=== PATIENT | male | born 1975 | race Caucasian/White ===

== ENCOUNTER 2018-10-04 12:24 | Day surgery (SDC) | payer OTHER, BC ==
[~2018-10-04 12:24] MED LIST: CEFAZOLIN 2 GM/50 ML (PMX) 50 ML IVPB; DEXAMETHASONE 4 MG/ML 5 ML INJ; KETOROLAC 30 MG INJ
[2018-10-04 13:19] LABS: ADD MAN DIFF? NO
[2018-10-04 13:26] LABS: BASOPHILS % 0.6 % (0.0-2.0); EOSINOPHILS # 0.2 10^3/ul (0.0-0.5); EOSINOPHILS % 2.5 % (0.0-7.0); HEMATOCRIT 42.6 % (42.0-52.0); HEMOGLOBIN 14.9 g/dl (14.0-18.0); LYMPHOCYTES # 3.3 10^3/ul (0.8-2.9); LYMPHOCYTES % 48.8 % (15.0-51.0); MEAN CORPUSCULAR HEMOGLOBIN 31.1 pg (29.0-33.0); MEAN CORPUSCULAR VOLUME 88.9 fl (82.0-101.0); MEAN PLATELET VOLUME 11.3 fl (7.4-10.4); MONOCYTE # 0.6 10^3/ul (0.3-0.9); MONOCYTES % 9.1 % (0.0-11.0); NEUTROPHIL # 2.6 10^3/ul (1.6-7.5); NEUTROPHILS % 38.7 % (39.0-77.0); PLATELET COUNT 258 10^3/UL (140-415); RED BLOOD COUNT 4.79 10^6/ul (4.70-6.10); RED CELL DISTRIBUTION WIDTH 13.2 % (11.5-14.5)
[2018-10-04 13:26] LABS: WHITE BLOOD COUNT 6.8 10^3/ul (4.8-10.8)
[2018-10-04 13:49] LABS: PROTIME 12.3 Sec (11.9-14.9)
[2018-10-04 13:50] LABS: PARTIAL THROMBOPLASTIN TIME 29.9 Sec (23.0-35.0)
[2018-10-04 13:54] LABS: ALANINE AMINOTRANSFERASE 48 IU/L (13-69); ALBUMIN 4.5 g/dl (3.3-4.9); ALKALINE PHOSPHATASE 82 IU/L (42-121); ANION GAP 9 (5-13); ASPARTATE AMINO TRANSFERASE 32 IU/L (15-46); BILIRUBIN,INDIRECT 0.6 mg/dl (0-1.1); BILIRUBIN,TOTAL 0.6 mg/dl (0.2-1.3); BLOOD UREA NITROGEN 18 mg/dl (7-20); CALCIUM 9.5 mg/dl (8.4-10.2); CARBON DIOXIDE 25 mmol/L (21-31); CHLORIDE 107 mmol/L (97-110); CREATININE 0.86 mg/dl (0.61-1.24); Estimated GFR > 60 mL/min (>60); GLUCOSE 106 mg/dl (70-220); POTASSIUM 3.8 mmol/L (3.5-5.1); SODIUM 141 mmol/L (135-144); TOTAL PROTEIN 7.5 g/dl (6.1-8.1)
[2018-10-04] MEDS: SOD CHLORIDE 0.9% 1,000 ML IV (13:54)
[2018-10-04] MEDS ORDERED: BUPIVACAINE 0.25%/EPI (SDV) 30 ML INJ (14:47)
[2018-10-04] MEDS ORDERED: CEFAZOLIN 1 GM INJ (14:53)
[2018-10-04] MEDS ORDERED: MIDAZOLAM 1 MG/ML 2 ML INJ (14:54)
[2018-10-04] MEDS ORDERED: FENTAnyl 50 MCG/ML VIAL (14:54)
[2018-10-04] MEDS ORDERED: LIDOCAINE 1%/EPI (1:100,000) (MDV) 20 ML (14:55)
[2018-10-04] MEDS ORDERED: BUPIVACAINE 0.25% (MPF) 30 ML INJ (14:56)
[2018-10-04] MEDS ORDERED: FENTAnyl 50 MCG/ML VIAL IV ×2 (15:00)
[2018-10-04] MEDS ORDERED: HYDROmorphONE 1 MG/5 ML IV SYRINGE IV ×2 (15:00)
[2018-10-04] MEDS ORDERED: ONDANSETRON 4 MG INJ IV ×2 (15:00→15:30)
[2018-10-04] MEDS ORDERED: METOCLOPRAMIDE 10 MG INJ IV (15:00)
[2018-10-04] MEDS ORDERED: MEPERIDINE 25 MG INJ IV (15:00)
[2018-10-04] MEDS ORDERED: OXYCODONE/ACETAMINOPHEN (5/325) TAB PO (15:00)
[2018-10-04] MEDS ORDERED: hydrALAzine 20 MG INJ IV (15:00)
[2018-10-04] MEDS ORDERED: LABETALOL HCL 20MG INJ IV (15:00)
[2018-10-04] MEDS ORDERED: ONDANSETRON 4 MG INJ (15:25)
[2018-10-04] MEDS ORDERED: METOCLOPRAMIDE 10 MG INJ (15:25)
[2018-10-04] MEDS ORDERED: IBUPROFEN 600 MG TAB PO (15:30)
[2018-10-04] MEDS: LIDOCAINE 1%/EPI 30 ML INJ INJ (15:32)
[2018-10-04] MEDS: BUPIVACAINE 0.25% (MPF) 10 ML 10 ML VIAL INJ (15:32)
== END 2018-10-04 16:49 | disposition home or self-care (01) ==
LOC: SDS 12:24
DX: R22.2 Localized swelling, mass and lump, trunk (principal); L72.0 Epidermal cyst
CPT/HCPCS: 21930; 80053; 85025; 85610; 85730; 88307